=== PATIENT | male | born 1960 | race Caucasian/White ===

== ENCOUNTER 2022-04-10 09:00 | Day surgery (SDC) | payer BC ==
[2022-04-09 09:34] VITALS: BMI 29.5
[~2022-04-10 09:00] MED LIST: LACTATED RINGERS 1,000 ML IV SCH
[2022-04-10] MEDS: LACTATED RINGERS 1,000 ML IV SCH ×2 (09:44→10:06)
[2022-04-10 09:46] VITALS: TEMP 97.4
[2022-04-10 10:05] LABS: Glucose,Whole Blood 88 mg/dL (70-110)
[2022-04-10] MEDS ORDERED: PROPOFOL 10 MG/ML 20 ML VIAL IV ONE (10:08)
--- NOTE | 2022-04-10 10:14 | P.GSHP ---
History of Present Illness H&P Date: 04/10/22 Chief Complaint: History of colon cancer, screening colonoscopy Is a 62-year-old male presents today for colonoscopy. Patient's. History of colon cancer patient underwent sigmoid colectomy in 2010 at [facility]. Patient denies a significant GI complaints. Past Medical History Past Medical History: Cancer, Diabetes Mellitus, Hyperlipidemia, Hypertension Additional Past Medical History / Comment(s): HX COLON XANCER-HAD CHEMO History of Any Multi-Drug Resistant Organisms: None Reported Past Surgical History: Bowel Resection, Hernia Repair, Orthopedic Surgery, Tonsillectomy Additional Past Surgical History / Comment(s): COLONOSCOPY. CHEMO PORT BROKE OFF AND WENT INTO [facility] TO BE SURGICALLY REMOVED. LT KNEE SX Past Anesthesia/Blood Transfusion Reactions: No Reported Reaction Smoking Status: Former smoker - Past Family History Mother Family Medical History: No Reported History Medications and Allergies Home Medications Medication Instructions Recorded Confirmed Type Atorvastatin [Lipitor] 10 mg PO HS 04/09/22 04/10/22 History Losartan Potassium [Cozaar] 25 mg PO HS 04/09/22 04/10/22 History metFORMIN HCL [Glucophage] 500 mg PO W/SUPPER 04/09/22 04/10/22 History tadalafiL [Cialis] 5 mg PO HS 04/09/22 04/10/22 History Allergies Allergy/AdvReac Type Severity Reaction Status Date / Time Mushroom AdvReac Severe Diarrhea Verified 04/10/22 09:37 Surgical - Exam Vital Signs Temp Pulse Resp BP Pulse Ox 97.4 F L 96 16 127/82 98 04/10/22 09:45 04/10/22 09:45 04/10/22 09:45 04/10/22 09:45 04/10/22 09:45 - General well developed, well nourished, no distress - Eyes PERRL - ENT normal pinna - Neck no masses - Respiratory normal expansion - Cardiovascular Rhythm: regular - Abdomen Abdomen: soft, non tender Assessment and Plan Assessment: History of colon cancer. We'll perform screening colonoscopy.
--- NOTE | 2022-04-10 10:23 | P.OP ---
Date of Procedure: 04/10/22 Preoperative Diagnosis: Screening colonoscopy Postoperative Diagnosis: Mild diverticulosis No evidence of recurrent colon cancer Procedure(s) Performed: colonoscopy Anesthesia: MAC Surgeon: Andreas Patterson Pathology: none sent Condition: stable Disposition: PACU Description of Procedure: Patient's placed on the endoscopy table in the lateral position. He received IV sedation. Digital rectal exam was performed. Revealed external hemorrhoids. Flexible colonoscope was then placed patient anus and passed throughout the entire colon. The ileocecal valve was visualized. The cecum, ascending and transverse colon appeared normal. In the descending colon there was a few scattered diverticula. Patient appears sigmoid resection. The colorectal anastomosis visualized. This was without evidence of scarring. The remaining rectum appeared normal. Scope withdrawn through the anus and internal and external hemorrhoids were noted. Scope was withdrawn for patient.
[2022-04-10 10:54] VITALS: BP 127/88; PULSE 84; RESP 17
== END 2022-04-10 11:21 | disposition home or self-care (01) ==
LOC: ORWHC2ENDO 09:00
PROVIDERS: ATTEND Surgery
DX: Z12.11 Encounter for screening for malignant neoplasm of colon (principal); K57.30 Diverticulosis of large intestine without perforation or abscess without bleeding; K64.4 Residual hemorrhoidal skin tags; K64.8 Other hemorrhoids; Z85.038 Personal history of other malignant neoplasm of large intestine; Z90.49 Acquired absence of other specified parts of digestive tract; E11.9 Type 2 diabetes mellitus without complications; I10 Essential (primary) hypertension; E78.5 Hyperlipidemia, unspecified; Z92.21 Personal history of antineoplastic chemotherapy; Z98.890 Other specified postprocedural states; Z87.891 Personal history of nicotine dependence; Z79.84 Long term (current) use of oral hypoglycemic drugs; Z79.899 Other long term (current) drug therapy; Z91.018 Allergy to other foods
CPT/HCPCS: 45378; J2704